=== PATIENT | female | born 1945 | race Two or more races ===

== ENCOUNTER 2025-01-24 19:24 | Emergency (ER) | payer SELFPAY ==
[~2025-01-24] VITALS: Ht 165.1 cm; Wt 72.6 kg
[2025-01-24] MEDS ORDERED: HYDROCODONE/APAP 5/325MG TABLET ONE (19:44)
[2025-01-24] MEDS ORDERED: KETOROLAC TROMETHAMINE INJ 30 MG/ML VIAL ONE (19:44)
[2025-01-24] MEDS: KETOROLAC TROMETHAMINE INJ 30 MG/ML VIAL IM ONE (19:45)
[2025-01-24] MEDS: HYDROCODONE/APAP 5/325MG TABLET PO ONE (19:45)
[2025-01-24] MEDS ORDERED: MORPHINE SULFATE INJ 4 MG/ML DISP.SYRIN ONE (20:35)
[2025-01-24] MEDS: MORPHINE SULFATE INJ 2 MG/ML DISP.SYRIN IM ONE (20:38)
[2025-01-24] MEDS ORDERED: HYDR-4303 PO (21:01)
[2025-01-24] MEDS ORDERED: IBUP-1490 PO (21:01)
[2025-01-24 21:13] VITALS: BP 110/66; TEMP 98; O2SAT 98
== END 2025-01-24 23:56 | disposition home or self-care (01) ==
LOC: ER 19:26
DX: S42.212A Unspecified displaced fracture of surgical neck of left humerus, initial encounter for closed fracture (principal); E11.9 Type 2 diabetes mellitus without complications; W01.0XXA Fall on same level from slipping, tripping and stumbling without subsequent striking against object, initial encounter; Y92.480 Sidewalk as the place of occurrence of the external cause; Y93.01 Activity, walking, marching and hiking; Y99.9 Unspecified external cause status
CPT/HCPCS: 99284; 96372 ×2; 73030; J1885; J2270